=== PATIENT | female | born 1945 | race Caucasian/White ===

== ENCOUNTER → 2017-01-01 | Outpatient (CLI) | payer MEDICARE ==
[~2017-01-01] MED LIST: Gadobutrol 10 mMOL/10 ML SDV IVPUSH STA
[2017-01-01 15:20] LABS: CHLORIDE,CL 102 mmol/L (98-110); SODIUM,NA 138 mmol/L (136-146)
--- NOTE | 2017-01-02 09:36 | MR ---
EXAMINATION: MRI of the brain with and without contrast. TECHNIQUE: Multiplanar and multisequence imaging of the brain without and following the administrati on of 6.5 mL of Gadavist. HISTORY: Ataxia. FINDINGS: Cerebral hemispheres and the deep nuclei are without hemorrhage, mass, edema, enhancement or atroph y. Moderate intraventricular subcortical white matter FLAIR signal intensities are noted, nonspecif ic but likely represent small vessel ischemic changes. There is a moderate prominence of the ventric les out of proportion to the sulcal atrophy. No extraaxial collections or hemorrhage. The ventricular system is of normal size and configuration without hydrocephalus. Brainstem and cerebellum are without hemorrhage, mass, edema, gliosis, enhancement or atrophy. Carotid basilar artery flow voids are intact. The otomastoid airspaces are clear. No internal adan tory canal or cerebellopontine angle masses or enhancement. There is mucosal thickening within the left sphenoid sinus. Globes, optic nerves, orbital apices, optic chiasm, optic tracts, and visual cortices are unremarka ble. The pituitary and sella turcica are unremarkable No meningeal enhancement. The craniocervical junction is unremarkable without Chiari malformation. No siderosis or evidence of vascular malformation. The calvarium is intact. IMPRESSION: 1. No acute intracranial findings. 2. Moderate small vessel ischemic changes. 3. Prominence of the ventricles out of proportion to the sulcal atrophy this may suggest normal pres sure hydrocephalus.
--- NOTE | 2017-01-02 09:49 | MR ---
EXAMINATION: MRI cervical spine with and without contrast HISTORY: Ataxia COMPARISON: None TECHNIQUE: Multiplanar and multisequence images obtained through the cervical spine before and follo wing the administration of 6.5 mL of Gadavist. FINDINGS: The cervical spinal alignment is normal. The vertebral body heights appear well maintained . Several small hemangiomas noted within the lower cervical spine. No suspicious bone marrow signal changes. There is no abnormal enhancement. The cervical spinal cord signal appears normal. The parav ertebral soft tissues appear normal. C2-C3: Unremarkable. C3-C4: Diffuse disc bulge asymmetric midline and to the left resulting in minimal spinal canal steno sis. There is moderate left neural foraminal stenosis accentuated by uncovertebral hypertrophy. C4-C5: Small to moderate diffuse disc bulge with mild spinal canal stenosis. Mild to moderate left n eural foraminal stenosis. C5-C6: Tiny diffuse disc bulge without significant spinal canal stenosis. No significant neural fora geoffrey stenosis. C6-C7: Large broad-based disc protrusion abutting the spinal cord resulting in mild to moderate over all spinal canal stenosis. No significant neural foraminal stenosis. C7-T1: Unremarkable. IMPRESSION: 1. Multilevel degenerative disc disease noted within the cervical spine most prominent at C6-C7 with individual details above.
== END ==
LOC: MW.MRI 14:33
PROVIDERS: ATTEND Psychiatry & Neurology Neuromuscular Medicine
DX: R27.0 Ataxia, unspecified (principal); R29.2 Abnormal reflex; M50.323 Other cervical disc degeneration at C6-C7 level
CPT/HCPCS: 70553; 72156; 82525; A9585; 36415; 80048; 82607

== ENCOUNTER → 2017-01-16 | Outpatient (CLI) | payer MEDICARE | LOC: MW.CHNEURO 08:00 | PROVIDERS: ATTEND Psychiatry & Neurology Neuromuscular Medicine | DX: R27.0 Ataxia, unspecified (principal); R13.10 Dysphagia, unspecified; R29.2 Abnormal reflex | CPT/HCPCS: 99214 ==

== ENCOUNTER → 2017-01-24 | Outpatient (CLI) | payer MEDICARE, OTHER ==
--- NOTE | 2017-01-24 14:24 | CR ---
EXAMINATION: Oropharyngeal video swallow study. HISTORY: Dysphasia COMPARISON: None TECHNIQUE: Lateral images obtained, speech pathologist present, various barium consistencies provide d. FINDINGS: There is good bolus formation and transfer. There is adequate epiglottic inversion and tra cheal elevation. No penetration or aspiration identified. IMPRESSION: Normal video swallow study.
== END ==
LOC: MW.DI 10:46
PROVIDERS: ATTEND Psychiatry & Neurology Neuromuscular Medicine
DX: R13.10 Dysphagia, unspecified (principal)
CPT/HCPCS: 74230; 74230-26; 92611-GN

== ENCOUNTER 2018-12-16 06:01 | Emergency (ER) | payer MEDICARE ==
[2018-12-16] MEDS ORDERED: Sodium Chloride 0.9% 2.5 ML Syringe FLUSH PRN (06:18)
[2018-12-16] MEDS ORDERED: Sodium Chloride 0.9% 10 ML Syringe FLUSH PRN (06:18)
[2018-12-16] MEDS ORDERED: Sodium Chloride 0.9% 1,000 ML IV ONE (06:23)
--- NOTE | 2018-12-16 06:26 | EDM.PDOC ---
ED HPI GENERAL MEDICAL PROBLEM - General Chief Complaint: Abdominal Pain Stated Complaint: LOWER LEFT ABDOMINAL PAIN Time Seen by Provider: 12/16/18 06:16 Source of Information: Reports: Patient History Limitations: Reports: No Limitations - History of Present Illness INITIAL COMMENTS - FREE TEXT/NARRATIVE: History of present illness: []Patient complains of left lower quadrant pain since last night. She has had this pain recently and was diagnosed with shingles on the left trunk back radiating to her left lower quadrant and put on Lyrica. Her rash has since gone away but her pain continues. Patient came from home and was treated last night with ibuprofen twice and with milk of magnesia this morning. She has had 2 bowel movements which are small but soft without blood. She denies any fevers, chills, nausea, vomiting or diarrhea. Review of systems: As per history of present illness and below otherwise all systems reviewed and negative. Past medical history: As per history of present illness and as reviewed below otherwise noncontributory. Surgical history: As per history of present illness and as reviewed below otherwise noncontributory. Social history: No reported history of drug or alcohol abuse. Family history: As per history of present illness and as reviewed below otherwise noncontributory. Physical exam: General: Well developed, well nourished in NAD HEENT: Atraumatic, normocephalic, pupils reactive, negative for conjunctival pallor or scleral icterus, mucous membranes moist, throat clear, neck supple, nontender, trachea midline. Lungs: Clear to auscultation, breath sounds equal bilaterally, chest nontender. Heart: S1S2, regular, negative for clicks, rubs, or JVD. Abdomen: NABS, Soft, nondistended, tender left lower quadrant without rebound or guarding. Negative for masses or hepatosplenomegaly. Negative for costovertebral tenderness. Pelvis: Stable nontender. Genitourinary: Deferred. Rectal: Deferred. Extremities: Atraumatic, negative for cords or calf pain. Neurovascular unremarkable. Neuro: Awake, alert, oriented. Cranial nerves II through XII unremarkable. Cerebellum unremarkable. Motor and sensory unremarkable throughout. Exam nonfocal. Skin:warm and dry Diagnostics: CBC, chemistry, lipase, UA, CT abdomen and pelvis Therapeutics: IV hydration, declined pain meds ED Course: Unremarkable Impression: Lower quadrant pain likely due to shingles, incidental small pancreatic mass suspicious for adenocarcinoma and left renal mass the stent with complex cyst Prescriptions: None Plan: Follow-up with primary care Definitive disposition and diagnosis as appropriate pending reevaluation and review of above. abdominal Pain Score (Numeric/FACES): 6 - Related Data Allergies Allergy/AdvReac Type Severity Reaction Status Date / Time hydrocodone Allergy Other Verified 12/16/18 06:45 levofloxacin [From Levaquin] Allergy Other Verified 12/16/18 06:45 oxycodone Allergy Other Verified 12/16/18 06:45 peanut Allergy Cough Verified 12/16/18 06:45 Penicillins Allergy Anaphylactic Verified 12/16/18 06:45 Shock tramadol Allergy Vomiting Verified 12/16/18 06:45 fragrance Allergy Difficulty Uncoded 12/16/18 06:45 Breathing Home Meds: Home Meds Albuterol Sulfate 0.63 mg NEB ASDIRECTED 12/16/18 [History] Aspirin [Halfprin] 81 mg PO DAILY 12/16/18 [History] Calcium Citrate/Vitamin D3 [Citracal-Vit D 200 mg-250 Tab] 1 each PO DAILY 12/16 [History] Furosemide [Lasix] 20 mg PO DAILY 12/16/18 [History] Gluc HCl/Csa/Vishal Hy/Hyalur Ac [Glucosamine Chondroitin] 3 tab PO BID 12/16/18 [ History] Hydrochlorothiazide/Losartan [Hyzaar 50-12.5 MG] 1 tab PO DAILY 12/16/18 [ History] Ibuprofen 400 mg PO ASDIRECTED PRN 12/16/18 [History] NIFEdipine [Nifedipine ER] 30 mg PO DAILY 12/16/18 [History] Olodaterol HCl [Striverdi Respimat] 2.5 mcg INH DAILY 12/16/18 [History] Pantoprazole Sodium [Protonix] 40 mg PO DAILY 12/16/18 [History] Polyethylene Glycol 3350 [MiraLAX] 17 gm PO BID 12/16/18 [History] Potassium Gluconate 1 tab PO BID 12/16/18 [History] Pramipexole Di-HCl [Mirapex] 0.125 mg PO DAILY 12/16/18 [History] Pregabalin [Lyrica] 50 mg PO DAILY 12/16/18 [History] Prevagen 10 mg PO DAILY 12/16/18 [History] Vit A/Vit C/Vit E/Zinc/Copper [Preservision Areds Softgel] 1 each PO BID [History] atorvaSTATin [Lipitor] 80 mg PO BEDTIME 12/16/18 [History] predniSONE [Prednisone] 10 mg PO DAILY 12/16/18 [History] Past Medical History Cardiovascular History: Reports: Hypertension Respiratory History: Reports: COPD Gastrointestinal History: Reports: Hiatal Hernia Neurological History: Reports: Parkinson's Other Neuro History: Questionable for Parkinson's per MD in Dr. Jacinda Sifuentes questioning other conditions - Past Surgical History GI Surgical History: Reports: Cholecystectomy Female Surgical History: Reports: Hysterectomy Musculoskeletal Surgical History: Reports: ORIF ED ROS GENERAL - Review of Systems Review Of Systems: ROS reveals no pertinent complaints other than HPI. ED EXAM, GI/ABD - Physical Exam Exam: See Below (See history of present illness) Course - Vital Signs Last Recorded V/S: Last Vital Signs Temp 97.8 F 12/16/18 06:13 Pulse 80 12/16/18 06:13 Resp 20 12/16/18 06:13 BP 133/60 12/16/18 06:13 Pulse Ox 95 12/16/18 06:13 - Orders/Labs/Meds Orders: Active Orders 24 hr Category Date Time Status Sodium Chloride 0.9% [Saline Flush] Med 12/16/18 06:18 Active 10 ml FLUSH ASDIRECTED PRN Sodium Chloride 0.9% [Saline Flush] Med 12/16/18 06:18 Active 2.5 ml FLUSH ASDIRECTED PRN Saline Lock Insert [OM.PC] Stat Oth 12/16/18 06:18 Ordered Medication Orders Sodium Chloride (Saline Flush) 10 ml FLUSH ASDIRECTED PRN PRN Reason: Keep Vein Open Sodium Chloride (Saline Flush) 2.5 ml FLUSH ASDIRECTED PRN PRN Reason: Keep Vein Open Labs: Laboratory Tests 12/16/18 12/16/18 12/16/18 Range/Units 06:38 06:38 07:40 WBC 8.70 (4.0-11.0) K/uL RBC 3.64 L (4.30-5.90) M/uL Hgb 9.0 L (12.0-16.0) g/dL Hct 28.6 L (36.0-46.0) % MCV 78.6 L (80.0-98.0) fL MCH 24.7 L (27.0-32.0) pg MCHC 31.5 (31.0-37.0) g/dL RDW Std Deviation 46.7 (28.0-62.0) fl RDW Coeff of Randell 16 H (11.0-15.0) % Plt Count 362 (150-400) K/uL MPV 8.60 (7.40-12.00) fL Neut % (Auto) 53.3 (48.0-80.0) % Lymph % (Auto) 34.3 (16.0-40.0) % [place]ole % (Auto) 9.1 (0.0-15.0) % Eos % (Auto) 2.8 (0.0-7.0) % Baso % (Auto) 0.5 (0.0-1.5) % Neut # (Auto) 4.7 (1.4-5.7) K/uL Lymph # (Auto) 3.0 H (0.6-2.4) K/uL Toole # (Auto) 0.8 (0.0-0.8) K/uL Eos # (Auto) 0.2 (0.0-0.7) K/uL Baso # (Auto) 0.0 (0.0-0.1) K/uL Nucleated RBC % 0.0 /100WBC Nucleated RBCs # 0 K/uL Sodium 141 (136-145) mmol/L Potassium 3.4 L (3.5-5.1) mmol/L Chloride 105 (98-107) mmol/L Carbon Dioxide 30.6 (21.0-32.0) mmol/L BUN 15 (7.0-18.0) mg/dL Creatinine 0.9 (0.6-1.0) mg/dL Est Cr Clr Drug Dosing 48.07 mL/min Estimated GFR (MDRD) > 60.0 ml/min Glucose 86 (74-106) mg/dL Calcium 9.1 (8.5-10.1) mg/dL Total Bilirubin 0.3 (0.2-1.0) mg/dL AST 23 (15-37) IU/L ALT 33 (14-63) IU/L Alkaline Phosphatase 29 L (46-116) U/L Total Protein 6.3 L (6.4-8.2) g/dL Albumin 3.1 L (3.4-5.0) g/dL Globulin 3.2 (2.6-4.0) g/dL Albumin/Globulin Ratio 1.0 (0.9-1.6) Lipase 302 (73-393) U/L Urine Color YELLOW Urine Appearance CLEAR Urine pH 6.5 (5.0-8.0) Ur Specific [place] <= 1.005 (1.001-1.035) Urine Protein NEGATIVE (NEGATIVE) mg/dL Urine Glucose (UA) NEGATIVE (NEGATIVE) mg/dL Urine Ketones NEGATIVE (NEGATIVE) mg/dL Urine Occult Blood NEGATIVE (NEGATIVE) Urine Nitrite NEGATIVE (NEGATIVE) Urine Bilirubin NEGATIVE (NEGATIVE) Urine Urobilinogen 0.2 (<2.0) EU/dL Ur Leukocyte Esterase SMALL H (NEGATIVE) Urine RBC NONE SEEN (0-2/HPF) Urine WBC 2-4 (0-5/HPF) Ur Epithelial Cells FEW (NONE-FEW) Urine Bacteria FEW (NEGATIVE) Urine Mucus LIGHT (NONE-MOD) Meds: Medications Generic Name Dose Route Start Last Admin Trade Name Freq PRN Reason Stop Dose Admin Sodium Chloride 10 ml 12/16/18 06:18 Saline Flush FLUSH ASDIRECTED PRN Keep Vein Open Sodium Chloride 2.5 ml 12/16/18 06:18 Saline Flush FLUSH ASDIRECTED PRN Keep Vein Open Discontinued Medications Generic Name Dose Route Start Last Admin Trade Name Freq PRN Reason Stop Dose Admin Sodium Chloride 1,000 mls @ 999 mls/hr 12/16/18 06:23 12/16/18 06:42 Normal Saline IV 12/16/18 07:23 999 mls/hr .Bolus ONE Administration Iopamidol 100 ml 12/16/18 08:24 12/16/18 08:25 Isovue Multipack-370 (76%) IVPUSH 12/16/18 08:25 100 ml ONETIME ONE Administration Departure - Departure Time of Disposition: 09:25 Disposition: Home, Self-Care 01 Condition: Good Clinical Impression: Abdominal pain, left lower quadrant, Pancreatic mass, Kidney mass - Discharge Information *PRESCRIPTION DRUG MONITORING PROGRAM REVIEWED*: No *COPY OF PRESCRIPTION DRUG MONITORING REPORT IN PATIENT CAT: No Referrals: Abhishek Grimes MD [Primary Care Provider] - Forms: ED Department Discharge Additional Instructions: The following information is given to patients seen in the emergency department who are being discharged to home. This information is to outline your options for follow-up care. We provide all patients seen in our emergency department with a follow-up referral. The need for follow-up, as well as the timing and circumstances, are variable depending upon the specifics of your emergency department visit. If you don't have a primary care physician on staff, we will provide you with a referral. We always advise you to contact your personal physician following an emergency department visit to inform them of the circumstance of the visit and for follow-up with them and/or the need for any referrals to a consulting specialist. The emergency department will also refer you to a specialist when appropriate. This referral assures that you have the opportunity for follow-up care with a specialist. All of these measure are taken in an effort to provide you with optimal care, which includes your follow-up. Under all circumstances we always encourage you to contact your private physician who remains a resource for coordinating your care. When calling for follow-up care, please make the office aware that this follow-up is from your recent emergency room visit. If for any reason you are refused follow-up, please contact the [facility] Emergency Department at and asked to speak to the emergency department charge nurse. [facility] [address] [place] [id number] - My Orders Last 24 Hours: My Active Orders 12/16/18 06:18 Sodium Chloride 0.9% [Saline Flush] 10 ml FLUSH ASDIRECTED PRN Sodium Chloride 0.9% [Saline Flush] 2.5 ml FLUSH ASDIRECTED PRN Saline Lock Insert [OM.PC] Stat - Assessment/Plan Last 24 Hours: My Active Orders 12/16/18 06:18 Sodium Chloride 0.9% [Saline Flush] 10 ml FLUSH ASDIRECTED PRN Sodium Chloride 0.9% [Saline Flush] 2.5 ml FLUSH ASDIRECTED PRN Saline Lock Insert [OM.PC] Stat
[2018-12-16 07:12] LABS: CHLORIDE,CL 105 mmol/L (98-107); SODIUM,NA 141 mmol/L (136-145)
[2018-12-16] MEDS ORDERED: Iopamidol 755 MG/ML 500 ML Multipack Bottle IVPUSH ONE (08:24)
--- NOTE | 2018-12-16 09:21 | CT ---
HISTORY: Left lower quadrant pain. History of shingles. TECHNIQUE: CT abdomen and pelvis with IV contrast. COMPARISON: None. FINDINGS: Abdomen: No liver lesions. Cholecystectomy. No pancreatic mass or pancreatic duct 1.2 x 1.4 cm hypodense lesion in the body of the pancreas (series 201 image 41). This is in continuity with the or abuts the main pancreatic duct. No spleen lesions. No adrenal nodules. Kidneys enhance symmetrically. 1 cm above water density lesion in the posterior mid left kidney. Few subcentimeter hypodense lesions in both kidneys are too small to characterize. No hydronephrosis. Large hiatal hernia no dilated bowel. Colonic diverticulosis. No pericolonic inflammatory change. No free fluid. No free intraperitoneal gas. No lymphadenopathy. Moderate atherosclerosis. Abdominal aorta is normal caliber. Pelvis: No lymphadenopathy. Musculoskeletal: Bone island in the left sacral ala. Degenerative changes of the spine. Lower chest: Coronary artery calcifications. Mild atelectasis or scarring in the lingula and right middle lobe. IMPRESSION: 1. 1.2 x 1.4 cm hypodense lesion in the body of the pancreas. Primary differential considerations include intraductal papillary mucinous neoplasm (IPMN) and pancreatic adenocarcinoma. Recommend further characterization with contrast enhanced MRI. 2. 1 cm indeterminate left renal mass. This could potentially be characterized by MRI if performed for pancreatic evaluation. 3. Colonic diverticulosis. No acute diverticulitis. 4. Large hiatal hernia. --- Discussed with Dr Elke Bhandari on 07/16/18 at 0919 hours. Please note that all CT scans at this facility use dose modulation, iterative reconstruction, and/or weight-based dosing when appropriate to reduce radiation dose to as low as reasonably achievable. Dictated by Douglas Triplett MD @ Dec 16 2018 9:20AM Signed by Dr. Douglas Triplett @ Dec 16 2018 9:20AM
[2018-12-16] MEDS ORDERED: Ibuprofen 400 MG Tab PO ONE (09:25)
[2018-12-16 09:36] VITALS: BP 134/76
== END 2018-12-16 10:16 | disposition home or self-care (01) ==
LOC: MW.ED 06:01
DX: R10.32 Left lower quadrant pain (principal); N28.89 Other specified disorders of kidney and ureter; K86.89 Other specified diseases of pancreas; I10 Essential (primary) hypertension; J44.9 Chronic obstructive pulmonary disease, unspecified; Z88.0 Allergy status to penicillin; Z88.1 Allergy status to other antibiotic agents; Z88.5 Allergy status to narcotic agent; Z79.899 Other long term (current) drug therapy
CPT/HCPCS: 36415; 74177; 80053; 81001; 83690; 85025; 96360; 99284; A9270; J7040; Q9967